=== PATIENT | female | born 1955 | race Caucasian/White ===

== ENCOUNTER → 2019-11-09 08:58 | Outpatient (BNVA) | payer OTHER, SELFPAY | PROVIDERS: Family Provider Nurse Practitioner; PCP Nurse Practitioner; Visit Provider Otolaryngology | DX: K14.6 Glossodynia (principal); J35.01 Chronic tonsillitis; J03.91 Acute recurrent tonsillitis, unspecified; J34.2 Deviated nasal septum; J34.3 Hypertrophy of nasal turbinates | CPT/HCPCS: 99203; 99214 ==

== ENCOUNTER 2019-11-09 10:47 | Outpatient (REF) | payer OTHER, SELFPAY ==
[2019-11-09 11:39] LABS: Basophils # 0.1 10^3/uL (0.0-0.1); Eosinophils # 0.1 10^3/uL (0.0-0.8); Hemoglobin 13.5 g/dL (11.5-15.3); Lymphocytes # 1.7 10^3/uL (0.8-4.8); Lymphocytes % 33.5 %; Mean Corpuscular HGB Conc 32.9 g/dL (30.0-36.0); Mean Corpuscular Hemoglobin 29.2 pg (28.0-34.0); Mean Corpuscular Volume 88.6 fL (81-99); Mean Platelet Volume 9.3 fL (7.4-10.4); Monocytes # 0.5 10^3/uL (0.2-0.9); Monocytes % 9.7 %; Neutrophils # 2.8 10^3/uL (1.8-7.7); Neutrophils % 54.6 %; Nucleated Red Blood Cells % 0 %; Platelet Count 280 10^3/cmm (130-400); Red Blood Count 4.63 10^6/uL (4.1-5.3); Red Cell Distribution Width 12.9 % (12.1-15.1); White Blood Count 5.1 10^3/uL (4.0-10.0)
[2019-11-09 11:50] LABS: Alanine Aminotransferase 29 U/L (0-33); Albumin Level 4.4 g/dL (3.5-5.2); Alkaline Phosphatase 98 IU/L (35-105); Anion Gap 16.5 (5-19); Aspartate Amino Transferase 25 U/L (0-32); Blood Urea Nitrogen 12 mg/dL (8-23); Calcium 10.5 mg/Dl (8.8-10.2); Carbon Dioxide 28 mmol/L (22-29); Chloride 101 mmol/L (98-107); Globulin 3.5 g/dL (1.3-4.6); Glomerular Filtration Rate 124.2 mL/min (90-130); Glucose 107 mg/dL (74-106); Potassium 4.5 mmol/L (3.5-5.1); Sodium 141 mmol/L (136-145); Total Bilirubin 0.3 mg/dL (0.15-1.2); Total Protein 7.9 g/dL (6.6-8.7)
[2019-11-09 12:05] LABS: Vitamin B12 1102 pg/mL (232-1245)
[2019-11-11 18:41] LABS: Zinc Level, Serum or Plasma 79 mcg/dL (60-130)
== END 2019-11-09 10:48 | disposition home or self-care (01) ==
LOC: LAB 10:47
PROVIDERS: Family Provider Nurse Practitioner; PCP Nurse Practitioner; Visit Provider Dermatology
DX: Z01.89 Encounter for other specified special examinations (principal); Z79.899 Other long term (current) drug therapy
CPT/HCPCS: 36415; 80053; 82607; 84630; 85025

== ENCOUNTER 2019-12-16 10:58 | Outpatient (CLI) | payer OTHER, SELFPAY ==
--- NOTE | 2019-12-16 11:05 | MM_ITS ---
WS: [id number] BILATERAL DIGITAL SCREENING MAMMOGRAM WITH CAD CLINICAL INFORMATION: SCREENING HISTORY: Screening mammogram. No current complaints. COMPARISON: July 30, 2018 TECHNIQUE: Bilateral CC and MLO views. FINDINGS: Fatty-replaced breasts bilaterally. Lucent centered calcification left breast. No suspicious focal ma ss, asymmetry, calcifications, or architectural distortion. No evidence of malignancy. MM/[id number] IMPRESSION: BI-RADS: 2-Benign FOLLOW UP: 1 Year Follow-up Recommend return to annual screening mammography.
== END 2019-12-16 10:59 | disposition home or self-care (01) ==
LOC: RADSHAW 11:00
PROVIDERS: Family Provider Nurse Practitioner; PCP Nurse Practitioner; Visit Provider Nurse Practitioner
DX: Z12.31 Encounter for screening mammogram for malignant neoplasm of breast (principal)
CPT/HCPCS: 77067

== ENCOUNTER 2021-03-10 09:50 | Emergency (ER) | payer OTHER, MEDICARE, SELFPAY ==
[2021-03-10 09:57] VITALS: BP 131/69; PULSE 116; RESP 20; TEMP 37.1; O2SAT 95; BMI 36.6
--- NOTE | 2021-03-10 10:02 | ED_ITS ---
HPI - URI/Sore Throat General: Chief Complaint: Dental/Oral Stated Complaint: throat pain Time Seen by Provider: 03/10/21 10:02 History of Present Illness: HPI Narrative: Patient comes in for persistent tenderness and soreness to her posterior pharynx. Patient was started on antibiotics and steroids on Friday for a tonsillitis. Patient does have a history of chronic tonsillar hypertrophy. Patient also takes medications routinely for cholesterol. Patient denies diabetes. MD elicited complaint: sore throat Onset (ago): day(s) (Patient reports sore throat and illness since the ) Consistency: constant Severity: moderate Description of mucous: clear Exacerbating factors: swallowing Relieving factors: nothing Associated symptoms: Reports nausea and sore throat Treatments prior to arrival: none Review of Systems General: Reports: 10 or more systems reviewed and unremarkable except in HPI and below ENMT: Reports: throat pain GI: Reports: nausea PFSH ED PFSH: Medical History (Updated 03/10/21 @ 14:37 by Danilo Rodas MD) Anxiety and depression Chronic tonsillitis Total body pain Surgical History (Updated 03/10/21 @ 14:37 by Danilo Rodas MD) Bone cyst of femur Right --excised History of carpal tunnel release Bilateral Family History Other Cancer Dementia Hiatal hernia Hypertension Social History Smoking and tobacco status: never smoked Alcohol intake: former Physical Exam Const: COMMON NORMALS: no acute distress and patient oriented x3 GENERAL APPEARANCE: cooperative HENMT: COMMON NORMALS: normocephalic, TM's normal bilaterally and Normal exte rnal nose present HEAD & SCALP: normal to inspection and normocephalic NOSE: Normal external nose present TYMPANIC MEMBRANE: TM's normal bilaterally MOUTH: Normal oral and palatal mucosa present THROAT: other (Tonsillar hypertrophy +3.) Eye: GENERAL EYE: appearance normal, both eyes and all related structures Neck/C-Spine: COMMON NORMALS: full ROM Lymph: LYMPHATIC: no lymphadenopathy noted Chest: COMMONS NORMALS: normal inspection of the chest Resp: COMMON NORMALS: normal respiratory effort EFFORT & INSPECTION: Yes able to speak in complete sentences Cardio: COMMON NORMALS: regular rate and regular rhythm RATE: regular rate RHYTHM: regular rhythm GI: COMMON NORMALS: non-tender : COMMON NORMALS: Yes no CVA tenderness BLADDER/KIDNEY EXAM: Yes no CVA tenderness Back/Pelvis: COMMON NORMALS: no CVA tenderness and thoracic and lumbar spine normal to inspection Extremity: COMMON NORMALS: normal to inspection Neuro: COMMON NORMALS: patient oriented x3 and moves all extremities Psych: COMMON NORMALS: mental status grossly normal and cooperative Skin: COMMON NORMALS: no rashes or lesions noted GENERAL SKIN EXAM: no rashes or lesions noted Course ED course: 1225, patient is resting well. I reviewed patient's labs with her and discussed her elevated liver enzymes. Patient has been off her statins for 3 weeks due to some dyspepsia. Patient has no other chronic medical problems. Palpation of the abdomen notes the right upper quadrant, positive Washington sign. Patient reports the pain goes through to her back. I ordered a gallbladder ultrasound due to the abnormalities. 9415, paged Dr. Rodas, general surgeon, to discuss abnormal ultrasound of the gallbladder. He agreed to come and evaluate patient. 1435, Dr. Rodas has talked with patient does not feel that it is an emergent gallbladder at this time. I reviewed this with patient's at this time she would like to go home and get cleaned out with a good bowel movement. We will stop the steroid and the azithromycin and change patient to clindamycin to get better oral coverage due to her tonsillitis. Patient then will follow up with primary care for repeat labs and further evaluation. Vital Signs: Vital signs: Vital Signs Temperature 98.7 F 03/10/21 09:57 Pulse Rate 103 H 03/10/21 14:04 Respiratory Rate 18 03/10/21 14:04 Blood Pressure 113/80 03/10/21 14:04 Pulse Oximetry 95 03/10/21 12:39 MDM - URI/Sore Throat MDM Narrative: Medical decision making narrative: Patient comes in today for complaints of sore throat. Patient was started on antibiotics and steroids on Friday with minimal relief. Patient reports difficulty of swallowing and pain with talking. Patient manages secretions well. Patient is easily understood with voice. Posterior pharynx shows tonsillar hypertrophy +3. Airway is intact. Differential diagnosis includes tonsillar abscess, re tropharyngeal abscess, tonsillitis. CBC showed a white count of 8.5. Metabolic panel noted some abnormalities with liver enzymes. Bilirubin was normal. CT scan of the soft tissues of neck indicated no tonsillar abscess or drainable abscess. Noticing the liver enzymes a discussed with patient she did report some right upper quadrant pain for the last 2 weeks along with pain radiating to her back. Patient continues to be uncomfortable with mainly complaints of back pain at this time. Reexamination of patient's abdomen noted a positive Washington sign. Ultrasound of the abdomen and gallbladder noted some mild gallbladder wall thickening. Dr. Rodas was consulted for further evaluation. No emergent gallbladder was indicated at this time. Patient will be continued with clindamycin antibiotic and will stop the azithromycin and steroid. I encouraged plenty of fluids and light diet. Patient was given magnesium citrate for possible constipation. Patient can use hydrocodone as needed for pain. Patient can return to the ER as needed for worsening signs and symptoms. Lab Data: Labs: Lab Results 03/10/21 03/10/21 Range/Units 10:20 10:20 WBC 8.5 (4.0-10.0) 10^3/ uL RBC 4.03 L (4.1-5.3) 10^6/u L Hgb 11.9 (11.5-15.3) g/dL Hct 35.3 L (37.0-47.0) % MCV 87.6 (81-99) fL MCH 29.5 (28.0-34.0) pg MCHC 33.7 (30.0-36.0) g/dL RDW 14.6 (12.1-15.1) % Plt Count 100 L (130-400) 10^3/c mm MPV 11.7 H (7.4-10.4) fL Neut % (Auto) 86.0 % Lymph % (Auto) 8.1 % Lake % (Auto) 4.5 % Eos % (Auto) 0.2 % Baso % (Auto) 0.5 % Neut # (Auto) 7.29 (1.8-7.7) 10^3/u L Lymph # (Auto) 0.7 L (0.8-4.8) 10^3/u L Lake # (Auto) 0.4 (0.2-0.9) 10^3/u L Eos # (Auto) 0.0 (0.0-0.8) 10^3/u L Baso # (Auto) 0.0 (0.0-0.1) 10^3/u L Nucleated RBC % (a uto) 0 % Nucleated RBCs # 0.0 /100WBC Sodium 138 (136-145) mmol/L Potassium 3.4 L (3.5-5.1) mmol/L Chloride 102 (98-107) mmol/L Carbon Dioxide 26 (22-29) mmol/L Anion Gap 13.4 (5-19) BUN 10 (8-23) mg/dL Creatinine 0.5 (0.5-0.9) mg/dL GFR Calculation 123.4 (90-130) mL/min Glucose 96 (65-115) mg/dL Calculated Osmolal ity 285 (285-295) mOsm/k g Calcium 8.4 L (8.5-10.5) mg/dL Total Bilirubin 0.7 (0.15-1.2) mg/dL AST 162 H (0-32) U/L ALT 227 H (0-33) U/L Alkaline Phosphata se 549 H (35-105) IU/L Total Protein 6.1 L (6.6-8.7) g/dL Albumin 3.3 L (3.5-5.2) g/dL Globulin 2.8 (1.3-4.6) g/dL Discharge Plan Discharge Patient Disposition: Home Clinical Impression: Acute bacterial tonsillitis, Disease of gallbladder, Constipation Condition: Stable Prescriptions: New clindamycin HCl 150 mg capsule 450 mg PO Q8H 7 Days Qty: 63 RF: 0 hydrocodone-acetaminophen 5-325 mg tablet 1 tab PO Q6H PRN (Reason: pain) Qty: 10 RF: 0 magnesium citrate Solution 296 ml PO DAILY PRN (Reason: constipation) Qty: 296 RF: 1 Discontinued azithromycin 500 mg tablet 500 mg PO DAILY RF: 0 No Action omeprazole 20 mg capsule,delayed release(DR/EC) 20 mg PO DAILY RF: 0 potassium chloride 20 mEq tablet,ER particles/crystals 10 meq PO DAILY RF: 0 cholecalciferol (vitamin D3) 1,000 unit capsule 1,000 unit PO DAILY RF: 0 calcium carbonate [Antacid Ultra Strength] 400 mg calcium (1,000 mg) tablet,chewable 400 mg PO QDAY RF: 0 ergocalciferol (vitamin D2) 400 unit tablet 400 unit PO QDAY RF: 0 Digest Probiotic (S.boulardii) 250 mg capsule 250 mg PO BID RF: 0 simvastatin 80 mg tablet 40 mg PO DAILY RF: 0 sertraline 100 mg tablet 100 mg PO DAILY RF: 0 All Day Allergy (cetirizine) 10 mg capsule 10 mg PO DAILY RF: 0 melatonin 10 mg capsule 10 mg PO BEDTIME RF: 0 cinnamon bark [Cinnamon] 500 mg capsule 500 mg PO DAILY RF: 0 multivitamin [Daily Multi-Vitamin] Tablet 1 tab PO DAILY RF: 0 Fish Oil 1 tab PO DAILY RF: 0 Discharge Orders: Discharge ED (Routine); Ordered 03/10/21 Ordered By: Be Herron Referrals: Pricilla Staley FNP [Primary Care Provider] - Discharge Diet: Advance as tolerated Discharge Activity: Increase activity as tolerated Patient Instructions: Biliary Colic (ED), Opioid Safety Activity Restrictions/Additional Instructions: Drink plenty of fluids. Stop azithromycin and Medrol Dosepak. Start clindamycin, new antibiotic, and take as directed. Use magnesium citrate one 10 ounce bottle now and repeat in 12 hours if no bowel movement. Follow-up with primary care in 3 days for recheck. Return to the emergency department for high fever or new concerns. Coding Level of Care Code ED Counselor Dormitory for [facility]wjason Exam Comprehensive
--- NOTE | 2021-03-10 10:08 | CTR_ITS ---
PROCEDURE INFORMATION: Exam: CT Neck With Contrast Exam date and time: 03/10/2021 10:10 AM Age: 66 years old Clinical indication: Throat pain; Additional info: Tonsilar vs peritonsilar abscess TECHNIQUE: Imaging protocol: Computed tomography images of the neck with contrast. Radiation optimization: All CT scans at this facility use at least one of these dose optimization techniques: automated exposure control; mA and/or kV adjustment per patient size (includes targeted exams where dose is matched to clinical indication); or iterative reconstruction. Contrast material: OMNI 300; Contrast volume: 95 ml; Contrast route: INTRAVENOUS (IV); COMPARISON: No relevant prior studies available. RADIATION DOSE METRICS: Total DLP (mGy-cm): 458.47 FINDINGS: Nasopharynx: Unremarkable. Dental: Examination is limited secondary to metallic artifact from dental fillings and/or dental hardware. Oropharynx: Mild enlargement of the tonsils bilaterally suggesting mild bilateral tonsillitis. Possible tiny microabscesses in the right tonsil with no drainable abscess identified. Parapharyngeal fat planes appear intact. Hypopharynx: Unremarkable. Larynx: Unremarkable. Normal epiglottis. Retropharyngeal space: Unremarkable. Submandibular/Parotid glands: Normal. Glands are normal in size. Thyroid: Normal. No enlarged or calcified nodules. Lymph nodes: Unremarkable. No lymphadenopathy. Trachea: Visualized trachea is unremarkable. Lungs: Unremarkable as visualized. Bones/joints: Moderate to severe multilevel spine degenerative changes including degenerative disc disease, spondylosis and facet degenerative changes. Soft tissues: Unremarkable. No significant soft tissue swelling. CT/CT neck w con* [id number] IMPRESSION: 1. Mild enlargement of the tonsils bilaterally suggesting mild bilateral tonsillitis. 2. Possible tiny microabscesses in the right tonsil with no drainable abscess identified. 3. Parapharyngeal fat planes appear intact. Radiation Dose CTDIVOL = (mGy): DLP = 458.47 (mGy-cm)
[2021-03-10] MEDS: ketorolac 30 mg/mL INJ 15 MG IVP (10:22)
[2021-03-10] MEDS: dexamethasone 10 mg/mL INJ IVP (10:23)
[2021-03-10] MEDS: clindamycin 600 MG/50 ML PREMIX 100 MG IV (10:35)
[2021-03-10 10:36] VITALS: RESP 18
[2021-03-10] MEDS: morphine 4 mg/mL SDV 1 mL 2 MG IVP (10:36)
[2021-03-10 10:38] LABS: Basophils % 0.5 %; Eosinophils % 0.2 %; Hematocrit 35.3 % (37.0-47.0); Hemoglobin 11.9 g/dL (11.5-15.3); Lymphocytes # 0.7 10^3/uL (0.8-4.8); Lymphocytes % 8.1 %; Mean Corpuscular HGB Conc 33.7 g/dL (30.0-36.0); Mean Corpuscular Hemoglobin 29.5 pg (28.0-34.0); Mean Corpuscular Volume 87.6 fL (81-99); Mean Platelet Volume 11.7 fL (7.4-10.4); Monocytes # 0.4 10^3/uL (0.2-0.9); Monocytes % 4.5 %; Neutrophils # 7.29 10^3/uL (1.8-7.7); Nucleated Red Blood Cells % 0 %; Platelet Count 100 10^3/cmm (130-400); Red Blood Count 4.03 10^6/uL (4.1-5.3); Red Cell Distribution Width 14.6 % (12.1-15.1); White Blood Count 8.5 10^3/uL (4.0-10.0)
[2021-03-10 10:58] LABS: Alanine Aminotransferase 227 U/L (0-33); Albumin Level 3.3 g/dL (3.5-5.2); Alkaline Phosphatase 549 IU/L (35-105); Aspartate Amino Transferase 162 U/L (0-32); Blood Urea Nitrogen 10 mg/dL (8-23); Calcium 8.4 mg/dL (8.5-10.5); Carbon Dioxide 26 mmol/L (22-29); Chloride 102 mmol/L (98-107); Globulin 2.8 g/dL (1.3-4.6); Glomerular Filtration Rate 123.4 mL/min (90-130); Glucose 96 mg/dL (65-115); Osmolality Calculated 285 mOsm/kg (285-295); Sodium 138 mmol/L (136-145); Total Bilirubin 0.7 mg/dL (0.15-1.2); Total Protein 6.1 g/dL (6.6-8.7)
[2021-03-10 11:07] VITALS: BP 117/66; PULSE 108; RESP 20
--- NOTE | 2021-03-10 11:08 | PC.NURSE ---
patient stated felt better, tolerated pain well at this time
[2021-03-10 11:12] LABS: Anion Gap 13.4 (5-19)
[2021-03-10 11:13] LABS: Potassium 3.4 mmol/L (3.5-5.1)
[2021-03-10] MEDS: iohexol 300 mg/mL 100 mL Btl IV (11:21)
[2021-03-10 11:35] LABS: Slide Review Slide Review Perform
--- NOTE | 2021-03-10 12:27 | USR_ITS ---
PROCEDURE INFORMATION: Exam: US Abdomen, Limited; Right Upper Quadrant Exam date and time: 03/10/2021 12:28 PM Age: 66 years old Clinical indication: Abdominal pain; Acute; Patient HX: PT has had this pain for 2 weeks but is terrible today; Additional info: Elevated liver enzymes, postive washington's sign, R/O cholecyst TECHNIQUE: Imaging protocol: US abdomen. Real time ultrasound with image documentation. Limited exam focused on the right upper quadrant. COMPARISON: No relevant prior studies available. FINDINGS: Liver: Fatty infiltration of the liver with focal fatty sparing. 18.0 cm liver. Gallbladder: Two 6 mm polyps adherent to the gallbladder wall. Sonographically positive Washington's sign suggesting possible cholecystitis. Common bile duct: 6.5 mm common bile duct which is upper limits of normal for the patient's age. Pancreas: Visualized pancreas is unremarkable. Right kidney: 10.2 x 5.0 x 4.8 cm right kidney. Inferior vena cava: 2.1 cm IVC. US/US abdomen limited [id number] IMPRESSION: 1. Fatty infiltration of the liver with focal fatty sparing. 2. 6.5 mm common bile duct which is upper limits of normal for the patient's age. 3. Two 6 mm polyps adherent to the gallbladder wall. 3.3 mm gallbladder wall consistent with mild gallbladder wall thickening. 4. Sonographically positive Washington's sign suggesting possible cholecystitis.
[2021-03-10] MEDS: sodium chloride 0.9% 1,000 ML 999 ML IV (12:36)
[2021-03-10 12:39] VITALS: BP 102/52; PULSE 105; RESP 20; O2SAT 95
[2021-03-10 14:04] VITALS: BP 113/80; PULSE 103; RESP 18
--- NOTE | 2021-03-10 14:33 | P.CONIM_ITS ---
Providers/Reason For Consult Consulting Physican/Specialty*: General Surgery Danilo Rodas MD Reason for Consult*: Abdominal pain with elevated liver function studies. Primary Care Provider: [facility] History of Present Illness History of Present Illness Joanne Davila is a 66 year old female who presented to the emergency department today with a 2-week history of a sore throat and recurrent tonsillitis. She also mentions that her whole body has been hurting. She said 2 weeks ago she started getting a sore throat. She has a history of chronic recurrent tonsillitis and said that she was having body aches and temperatures up to 103 degrees. She was seen in a clinic in [place] this past Friday and was started on what sounds to be a fluoroquinolone and for some reason, a steroid taper. She continued to have body aches and says her lower back was hurting. She denies nausea, but admits that she has not been eating well because her mouth is so dry. She came to the emergency room for her throat pain and apparently on examination they found that she had some abdominal pain as well. Her laboratory studies returned with mildly elevated transaminases and elevated alkaline phosphatase. Her bilirubin and white blood cell count were normal. An ultrasound was then done which showed some equivocal gallbladder abnormalities. I was asked to evaluate her from a possible cholecystitis standpoint. The patient says that she has not noticed any food intolerances. She says she can eat whatever she wants to (with the possible exception of spicy food, which has been going on forever) but she has not been terribly hungry over the past couple of weeks and she says her tongue gets so dry that she has a hard time eating and things do not taste good, either. In short, I cannot elicit a convincing ongoing history of biliary colic. She does mention that she has not had a bowel movement for about 4 days, which is unusual for her. She does continue to pass flatus. Of note, the patient has been on statins for several years for hyperlipidemia. She says she stopped taking these when she started feeling poorly ( I always quit taking all medication when I start feeling bad. ) She does continue to take ibuprofen and acetaminophen regularly, but I cannot get her to say that she has been taking more than normally directed. Review of Systems Const: Reports: fever(s) ENMT: Reports: throat pain, enlarged tonsils and dry mouth GI: Reports: abdominal pain and constipation; Denies: vomiting Musc: Reports: other ( Whole body pain ) Psych: Reports: anxiety and depression Meds/Allergies Home Medications and Allergies Home Medications Medication Instructions Recorded Confirmed Last Taken Type Saccharomyces boulardii 250 mg 250 mg PO BID 11/09/19 03/10/21 Unknown History capsule calcium carbonate 400 mg calcium 400 mg PO QDAY 11/09/19 03/10/21 Unknown His tory (1,000 mg) chewable tablet cetirizine 10 mg capsule 10 mg PO DAILY 11/09/19 03/10/21 Unknown History cholecalciferol (vitamin D3) 25 1,000 unit PO DAILY 11/09/19 03/10/21 Unknown History mcg (1,000 unit) capsule cinnamon bark 500 mg capsule 500 mg PO DAILY 11/09/19 03/10/21 Unknown History ergocalciferol (vitamin D2) 10 mcg 400 unit PO QDAY 11/09/19 03/10/21 Unknown History (400 unit) tablet melatonin 10 mg capsule 10 mg PO BEDTIME cap 11/09/19 03/10/21 Unknown History multivitamin 1 tab PO DAILY 11/09/19 03/10/21 Unknown History omeprazole 20 mg capsule,delayed 20 mg PO DAILY 11/09/19 03/10/21 Unknown History release potassium chloride 20 mEq 10 meq PO DAILY tab 11/09/19 03/10/21 Unknown History tablet,extended release(part/cryst) sertraline 100 mg tablet 100 mg PO DAILY 11/09/19 03/10/21 Unknown History simvastatin 80 mg tablet 40 mg PO DAILY tab 11/09/19 03/10/21 Unknown History Fish Oil 1 tab PO DAILY 03/10/21 03/10/21 Unknown History clindamycin HCl 450 mg PO Q8H 7 Days #63 cap 03/10/21 Unknown Rx hydrocodone-acetaminophen 1 tab PO Q6H PRN #10 tab 03/10/21 Unknown Rx magnesium citrate 296 ml PO DAILY PRN #296 ml 03/10/21 Unknown Rx Allergies Allergy/AdvReac Type Severity Reaction Status Date / Time No Known Allergies Allergy Verified 11/09/19 09:37 PFSH Acute PFSH: Medical History (Updated 03/10/21 @ 14:37 by Danilo Rodas MD) Anxiety and depression Chronic tonsillitis Total body pain Surgical History (Updated 03/10/21 @ 14:37 by Danilo Rodas MD) Bone cyst of femur Right --excised History of carpal tunnel release Bilateral Family History Other Cancer Dementia Hiatal hernia Hypertension Social History Smoking and tobacco status: never smoked Alcohol intake: former Vitals/I&O/Wt Last Vital Signs Temp 98.7 F 03/10/21 09:57 Pulse 103 H 03/10/21 14:04 Resp 18 03/10/21 14:04 BP 113/80 03/10/21 14:04 Pulse Ox 95 03/10/21 12:39 03/09/21 03/10/21 03/10/21 22:59 06:59 14:59 Intake Total 50 / 50 Balance 50 / 50 Weight last 48 hrs Weight 194 lb Physical Exam Narrative: EXAM NARRATIVE: The patient was encountered in her room in the emergency department. She does not appear to be in any distress. Her affect seems to be a little strange and she sometimes has a hard time directly answering questions. The pupils are equal. No carotid bruits are heard. The lungs are clear save some very mild inspiratory wheezes at times. The abdomen is moderatelyto severely obese but bowel sounds are good. She has tenderness everywhere I push on her abdomen but she does seem to be more tender in the epigastrium and the right upper quadrant. Washington's sign is positive but she has the same reaction when I push in the left mid abdomen and tell her to take a deep breath. I cannot say that she has any obvious peritoneal signs, but everywhere I seem to touch her she is uncomfortable. When I push firmly with my stethoscope I do not seem to get the same reaction. The extremities do not reveal any edema. Neurologically the patient can move all limbs to command. Data Micro: Micro: Microbiology 03/10/21 10:20 Blood Culture - Pr eliminary Blood [facility] 03/10/21 10:35 Blood Culture - Pr eliminary Blood [facility] Laboratory Tests 03/10/21 10:20 Total Bilirubin 0.7 AST 162 H ALT 227 H Alkaline Phosphata se 549 H Albumin 3.3 L Imaging^: US: Radiologist's impression: Ultrasound 03/10/2021 IMPRESSION: 1. Fatty infiltration of the liver with focal fatty sparing. 2. 6.5 mm common bile duct which is upper limits of normal for the patient's age. 3. Two 6 mm polyps adherent to the gallbladder wall. 3.3 mm gallbladder wall consistent with mild gallbladder wall thickening. 4. Sonographically positive Washington's sign suggesting possible cholecystitis. A&P Assessment and plan (1) Abdominal discomfort in right upper quadrant: The patient does seem to have tenderness in the right upper quadrant, but also seems to have tenderness almost everywhere else. Her ultrasound does not reveal any obvious cholelithiasis; her gallbladder wall is borderline thickened, but there is no obvious edema/pericholecystic fluid, etc. Her albumin is slightly low, as well, which can contribute to so-called benign gallbladder wall thickening. The patient's white blood cell count is normal with essentially a normal differential. Her LFTs are elevated but is difficult to know if these are coming down after being on statins versus some type of early cholecystitis issue. She has recent but ongoing constipation and it is difficult to know how much of this is contributing to any abdominal symptoms that she is having, etc. The patient's history is bizarre in the sense that she initially came in for throat pain and was then found to have abdominal discomfort (but again, she seems to have tenderness everywhere). I discussed gallbladder disease and gallbladder surgery. Risks of surgery including bleeding, infection, internal organ injury, chances of a larger/open procedure, failure to improve any of her symptoms, etc. were all gone over. The patient does not want surgery unless it becomes absolutely necessary. I told her that it may be worthwhile considering taking laxatives and getting cleaned out before we will reassess her abdominal symptoms. If she feels much better then obviously we probably would not be pursuing surgery. If it does not make any difference for her, then we will have to decide if we still want to watch this in hopes that it will continue to improve after stopping statins, or proceed with a cholecystectomy in hopes that is going to make her feel better. She seems to agree with a conservative approach. Status: Acute (2) Elevated LFTs: As above. Status: Acute Consult Attestations Medical Necessity Statement: I am going to leave the patient to disposition in the hands of the emergency room physicians. If she needs to be admitted then hopefully the hospitalists would be willing to keep an eye on her. I will be happy to be involved at least peripherally if needed. Coding Level of Care Code Acute Forging Press Lever Tender for Chg Fwd Diagnoses Abdominal discomfort in right upper quadrant R10.11 Elevated LFTs R79.89
[2021-03-10] MEDS: HYDROcodone-acetaminophen 5-325 mg Tablet 1 TAB PO (14:41)
[2021-03-10 14:59] VITALS: BP 107/57; PULSE 102; RESP 16; O2SAT 95
== END 2021-03-10 15:27 | disposition home or self-care (01) ==
PROVIDERS: Emergency Provider Nurse Practitioner Family; PCP Nurse Practitioner
DX: J03.80 Acute tonsillitis due to other specified organisms (principal); K59.00 Constipation, unspecified; K82.9 Disease of gallbladder, unspecified
CPT/HCPCS: 70491; 76705; 80053; 85025; 87040; 96365; 96375; 99284; J1100; J1885; J2270; J3490; J7030; Q9967

== ENCOUNTER 2021-04-17 08:45 | Outpatient (CLI) | payer OTHER, MEDICARE, SELFPAY ==
--- NOTE | 2021-04-17 08:51 | MM_ITS ---
WS: [id number] BILATERAL SCREENING DIGITAL MAMMOGRAM WITH CAD HISTORY: SCREENING COMPARISON: 12/16/2019 and 07/30/2018 Bilateral CC and MLO views submitted. Computer aided detection analyzed. Breast composition: There are scattered areas of fibroglandular density. No suspicious masses, microc alcifications or architectural distortion. Benign calcification LEFT breast. MM/[id number] IMPRESSION: BI-RADS: 2-Benign FOLLOW UP: 1 Year Follow-up
== END 2021-04-17 08:46 | disposition home or self-care (01) ==
LOC: RADSHAW 08:48
PROVIDERS: PCP Nurse Practitioner; Visit Provider Nurse Practitioner
DX: Z12.31 Encounter for screening mammogram for malignant neoplasm of breast (principal)
CPT/HCPCS: 77067

== ENCOUNTER → 2021-05-09 12:52 | Outpatient (BNVA) | payer OTHER, SELFPAY | PROVIDERS: PCP Nurse Practitioner; Visit Provider Surgery | DX: Z20.822 Contact with and (suspected) exposure to COVID-19 (principal); Z11.52 Encounter for screening for COVID-19 | CPT/HCPCS: 87635 ==

== ENCOUNTER 2021-05-14 06:16 | Day surgery (SDC) | payer OTHER, MEDICARE, SELFPAY ==
[2021-05-11 12:33] VITALS: BMI 32.5
[2021-05-14] VITALS (11 sets, daily range): BP systolic 102–156; BP diastolic 63–86; PULSE 63–95; RESP 17–22; TEMP 36.4–37.1; O2SAT 92–99
[2021-05-14 06:51] LABS: Basophils # 0.1 10^3/uL (0.0-0.1); Basophils % 1.1 %; Eosinophils # 0.1 10^3/uL (0.0-0.8); Eosinophils % 2.5 %; Hematocrit 39.9 % (37.0-47.0); Hemoglobin 13.4 g/dL (11.5-15.3); Lymphocytes # 2.4 10^3/uL (0.8-4.8); Lymphocytes % 42.2 %; Mean Corpuscular HGB Conc 33.6 g/dL (30.0-36.0); Mean Corpuscular Hemoglobin 29.6 pg (28.0-34.0); Mean Corpuscular Volume 88.3 fL (81-99); Mean Platelet Volume 9.5 fL (7.4-10.4); Monocytes # 0.7 10^3/uL (0.2-0.9); Monocytes % 11.4 %; Neutrophils # 2.43 10^3/uL (1.8-7.7); Neutrophils % 42.6 %; Nucleated Red Blood Cells % 0 %; Platelet Count 264 10^3/cmm (130-400); Red Blood Count 4.52 10^6/uL (4.1-5.3); Red Cell Distribution Width 13.5 % (12.1-15.1); White Blood Count 5.7 10^3/uL (4.0-10.0)
[2021-05-14] MEDS: acetaminophen 1,000 MG/100 ML PIGGYBACK 400 MG IV (07:10)
[2021-05-14] MEDS: ampicillin-sulbactam 3 GM in sodium chloride 0.9% (plus) 50 ML IV (07:10)
[2021-05-14] MEDS: sodium chloride 0.9% 1,000 ML 30 ML IV (07:11)
[2021-05-14 07:17] LABS: Alanine Aminotransferase 54 U/L (0-33); Albumin Level 3.4 g/dL (3.5-5.2); Alkaline Phosphatase 59 IU/L (35-105); Anion Gap 18.2 (5-19); Aspartate Amino Transferase 55 U/L (0-32); Blood Urea Nitrogen 10 mg/dL (8-23); Calcium 7.2 mg/dL (8.5-10.5); Carbon Dioxide 17 mmol/L (22-29); Chloride 110 mmol/L (98-107); Globulin 2.2 g/dL (1.3-4.6); Glomerular Filtration Rate 159.7 mL/min (90-130); Glucose 72 mg/dL (65-115); Osmolality Calculated 292 mOsm/kg (285-295); Potassium 3.2 mmol/L (3.5-5.1); Sodium 142 mmol/L (136-145); Total Bilirubin 0.3 mg/dL (0.15-1.2); Total Protein 5.6 g/dL (6.6-8.7)
--- NOTE | 2021-05-14 07:39 | ANES.PREANE2 ---
Pre-Anesthetic Assessment Pre-Anesthetic Assessment: Height/Weight: Height 1.55 m Weight 78.018 kg Temp Pulse Resp BP Pulse Ox 98.8 F 95 18 156/84 97 05/14/21 06:31 05/14/21 06:31 05/14/21 06:31 05/14/21 06:31 05/14/21 06:31 Preop Diagnosis: Gallbladder polyps Proposed Procedure: Operation Date: 05/14/21 08:00 Proposed Procedures p Laparoscopic Cholecystectomy 81271 k80.20(Not Applicable) - Porter Avalos MD Was Beta Mary taken within 24 hours: N/A Was Clonidine taken within 24 hours: N/A Last intake: Intake Last Liquid Date 05/13/21 Last Liquid Time 20:00 Last Solid Date 05/13/21 Last Solid Time 18:00 Social: Social History: No alcohol and No tobacco Exam: Pre-Anes Outpt Exam: alert, oriented x 3, clear to auscultation bilaterally and regular rate & rhythm Airway: Submandibular: WNL Cervical ROM: WNL MP: 2 Dentition: Full Additional comments: Under bite GI: GI: GERD Metabolic: Metabolic: Morbid obesity Neuropsych: Neuropsych: Depression Anesthetic Plan: ASA status: 3 Anesthesia: General Risk of > 500 ml blood loss (7ml/kg in children): No Meds/Allergies Current Medications: Current Medications Generic Name Dose Route Start Last Admin Trade Name Freq PRN Reason Stop Dose Admin Sodium Chloride 1,000 mls @ 30 ml s/hr 05/14/21 06:30 05/14/21 07:11 Sodium Chloride 0.9% IV 05/15/21 06:29 30 mls/hr .Q24H DIANELYS Administration PFSH Anesthesia PFSH: Medical History Anxiety and depression Chronic tonsillitis Total body pain Surgical History Bone cyst of femur Right --excised History of carpal tunnel release Bilateral Family History Other Cancer Dementia Hiatal hernia Hypertension Social History Alcohol intake: former Data Anesthesia CBC & Chem 7: 05/14/21 06:40 05/14/21 06:40 Other Labs: Laboratory Results - last 48 hr 05/14/21 05/14/21 06:40 06:40 WBC 5.7 RBC 4.52 Hgb 13.4 Hct 39.9 MCV 88.3 MCH 29.6 MCHC 33.6 RDW 13.5 Plt Count 264 MPV 9.5 Neut % (Auto) 42.6 Lymph % (Auto) 42.2 [place] % (Auto) 11.4 Eos % (Auto) 2.5 Baso % (Auto) 1.1 Neut # (Auto) 2.43 Lymph # (Auto) 2.4 [place] # (Auto) 0.7 Eos # (Auto) 0.1 Baso # (Auto) 0.1 Nucleated RBC % (auto) 0 Nucleated RBCs # 0.0 Sodium 142 Potassium 3.2 L Chloride 110 H Carbon Dioxide 17 L Anion Gap 18.2 BUN 10 Creatinine 0.4 L GFR Calculation 159.7 H Glucose 72 Calculated Osmolality 292 Calcium 7.2 L Total Bilirubin 0.3 AST 55 H ALT 54 H Alkaline Phosphatase 59 Total Protein 5.6 L Albumin 3.4 L Globulin 2.2 Cardiac Studies: No Data to Display
--- NOTE | 2021-05-14 08:21 | W.PM.OPSFHP ---
Same Day Surgery H&P Indication for Procedure/HPI DATE OF PROCEDURE: May 14, 2021 CHIEF COMPLAINT/INDICATIONFOR SURGICAL PROCEDURE: Gallbladder issues PREOP DIAGNOSIS: Gallbladder polyps PLANNED PROCEDRUE: Operation Date: 05/14/21 08:00 Proposed Procedures p Laparoscopic Cholecystectomy 21652 k80.20(Not Applicable) - Porter Avalos MD This is a pleasant 66 years old female patient presents with history of sharp right upper quadrant abdominal pain referred to the back and she was worked up in the emergency department and was found to have gallbladder polyps. Patient reports that she has been entertaining unhealthy diet. Abdominal ultrasound was done and showed 1. Fatty infiltration of the liver with focal fatty sparing. 2. 6.5 mm common bile duct which is upper limits of normal for the patient's age. 3. Two 6 mm polyps adherent to the gallbladder wall. 3.3 mm gallbladder wall consistent with mild gallbladder wall thickening. 4. Sonographically positive Washington's sign suggesting possible cholecystitis. Blood work showed platelet count of 100,000, elevated liver function tests and normal bilirubin. Patient was also found to have fatty liver Interim history 05/14/2021 Patient comes today and shows trending down and liver function tests and she is scheduled for laparoscopic cholecystectomy. ROS All systems have been reviewed negative except as per the above or per problem list Medications/Allergies* Home Medications Medication Instructions Recorded Confirmed Type Saccharomyces boulardii 250 mg 250 mg PO BID 11/09/19 05/14/21 History capsule calcium carbonate 400 mg calcium 400 mg PO QDAY 11/09/19 05/14/21 History (1,000 mg) chewable tablet cetirizine 10 mg capsule 10 mg PO DAILY 11/09/19 05/14/21 History cholecalciferol (vitamin D3) 25 1,000 unit PO DAILY 11/09/19 05/14/21 History mcg (1,000 unit) capsule cinnamon bark 500 mg capsule 500 mg PO DAILY 11/09/19 05/14/21 History melatonin 10 mg capsule 10 mg PO BEDTIME cap 11/09/19 05/14/21 History multivitamin 1 tab PO DAILY 11/09/19 05/14/21 History omeprazole 20 mg capsule,delayed 20 mg PO DAILY 11/09/19 05/14/21 History release potassium chloride 20 mEq 10 meq PO DAILY tab 11/09/19 05/14/21 History tablet,extended release(part/cryst) sertraline 100 mg tablet 100 mg PO DAILY 11/09/19 05/14/21 History simvastatin 80 mg tablet 40 mg PO DAILY tab 11/09/19 05/14/21 History Fish Oil 1 tab PO DAILY 03/10/21 05/14/21 History Allergies/Adverse Reactions Allergy/AdvReac Type Severity Reaction Status Date / Time No Known Allergies Allergy Verified 05/14/21 08:24 Current Medications: Generic Name Dose Route Start Last Admin Trade Name Ayush PRN Reason Stop Dose Admin Sodium Chloride 1,000 mls @ 30 mls/hr 05/14/21 06:30 05/14/21 07:11 Sodium Chloride 0.9% IV 05/15/21 06:29 30 mls/hr .Q24H DIANELYS Administration Pertinent History/Comorbid Conditions* Medical History (Updated 04/14/21 @ 15:24 by Porter Avalos MD) Anxiety and depression Chronic tonsillitis Total body pain Surgical History (Updated 03/10/21 @ 14:37 by Danilo Rodas MD) Bone cyst of femur Right --excised History of carpal tunnel release Bilateral Family History (Updated 11/09/19 @ 09:50 by aPm Lindsey LPN) Dementia Cancer Hypertension Hiatal hernia Social History Alcohol intake: former Pertinent Exam Findings alert, oriented x 3, clear to auscultation bilaterally, regular rate & rhythm and procedure specific exam findings (Abdominal examination nontender nondistended soft) Recommendations Surgery/Procedure today (Laparoscopic cholecystectomy possible open) Other Plans: Laparoscopic cholecystectomy possible open Coding Level of Care Code Acute Knitter Hel[employer] for Stewart Fabian
[2021-05-14] MEDS: lidocaine 2% INJ 20 mL INJECTION (08:47)
--- NOTE | 2021-05-14 09:16 | PM.OP ---
Operative Report Date of procedure: May 14, 2021 Pre-op Diagnosis: Gallbladder polyps Post-op diagnosis: other (Chronic cholecystitis) Post-op Findings: Chronic cholecystitis Procedure Done: Laparoscopic cholecystectomy Specimens removed/disposition: Gallbladder and contents Surgeon: Porter Avalos Security Attendant: Surgical jose Dougherty Circulating nurse Eva Anesthesia: General (Maria Antonia Marcano) Estimated blood loss (mL): 10 Condition: stable Disposition: same day Brief History: Symptomatic gallbladder disease. Procedure: Patient was identified in the holding area and taken back to the operative suite, placed in supine position intubated by anesthesia . Time-out was done verifying the patient's name/date of /planned procedure and destination after the procedure, all were in agreement. SCDs confirmed to be functioning, preoperative antibiotics administered per protocol, and beta karen protocol was confirmed. Patient was appropriately secured to the table, footboard was applied to the OR table, before prep and drape anesthesia was asked to tilt the table back and forth to make sure that the patient is appropriately secured and she was. Prep and drape of the abdomen was done under the usual sterile technique, followed by that supraumbilical skin incision,skin incision was done by a 11 blade knife, and stay sutures were applied to the fascia and Stratton trocar technique was used to enter the abdominal without injuring any abdominal viscera, started by low flow gas insufflation followed by a high flow, started with a 10 mm laparoscope and under direct vision there was no evidence of any injuries, the scope then switched to a 30? ,10 millimeter scope and under direct visualization 5 millimeter trocar was inserted in the epigastric region followed by two 5 mm trocars were inserted in the right upper quadrant that was done after injection of local lidocaine 2% at all incision sites. Gallbladder showed chronic cholecystitis Patient was then positioned in the head up and tilted to the left Ratcheted forceps were introduced into the lateral most 5mm port and was applied unto the fundus of the gallbladder cephalad and using Bullet forceps the infundibulum of the gallbladder was retracted laterally. Using [place] forceps then L-hook cautery to dissect the peritoneum overlying the Calot's triangle whihc was then opened medially and laterally until the cystic duct and the cystic artery were skeletonized. Dissection was carried along the body of the gallbladder and after ensuring critical view of safety was identfied. Cystic duct and cystic artery where seen connected to the gallbladder. Clips were applied on the cystic duct towards the common bile duct 1 towards the gallbladder then divided is in sharp scissors, 2 clips were then applied onto the cystic artery and 1 towards the gallbladder and divided by sharp scissors. Dissection was then carried along of the gallbladder from the gallbladder fossa using cautery as well as sharp dissection with heat energy. The gallbladder then was dissected out from the gallbladder fossa totally , cholecystectomy was then achieved and was placed in an Endo Catch bag and then retrieved from the Stratton trocar site under direct visualization using a 5 mm 30? scope through the epigastric trocar, specimen was then passed to the circulating nurse to go for permanent pathology,irrigation and hemostasis was done to the gallbladder fossa after hemostasis was secured, final survey laparoscopy was done that showed no injuries. Suction irrigation was obtained The supraumbilical fascial defect was then closed using interrupted number 1 PDS sutures using a fascial closure device ;Gómez Huthcison under direct visualization Gas was allowed to deflate,Trocars were then taken out under direct vision there was no evidence of bleeding Specimen was passed to the circulating nurse for permanent pathology. No drains were placed and the supraumbilical incision as well as all trocar sites were closed by 3/0 VICRYL THEN by 4-0 Monocryl to approximate the skin edges of the supraumbilical incision, dressing was applied in the form of Dermabond and the patient patient got extubated and was taken to recovery area in a stable condition. Count of sponges, needles and instruments were completed at the end of the procedure I was present for the whole entire procedure.
--- NOTE | 2021-05-14 09:45 | SUR.PHASEI ---
pt sleeps if not disturbed abdomen soft with 4 sites D/I, VSS,
[2021-05-14] MEDS: fentaNYL 50 mcg/mL INJ 2mL IVP (10:00)
[2021-05-14] MEDS: ondansetron 2 mg/ML SDV 2 mL 4 MG IVP (10:28)
[2021-05-14] MEDS: HYDROcodone-acetaminophen 5-325 mg Tablet 1 TAB PO (10:59)
--- NOTE | 2021-05-14 16:45 | ANE.PACU2 ---
Inpatient post-anesthesia follow up: Airway intact: Yes Vital signs: Temperature 97.5 F Pulse Rate 77 Respiratory Rate 18 Blood Pressure 131/72 Pulse Oximetry 93 Oxygen Delivery Me thod Nasal Cannula Oxygen Flow Rate 1 Fraction of Inspir ed Oxygen Hydration adequate: Yes Nausea and vomiting: No Pain level: 2 Mental status: Baseline
== END 2021-05-14 11:33 | disposition home or self-care (01) ==
PROVIDERS: PCP Nurse Practitioner; Visit Provider Surgery
PROC: 0FT44ZZ Resection of Gallbladder, Percutaneous Endoscopic Approach (ICD-10-PCS; CPT 47562; principal; 2021-05-14 08:00)
DX: K81.1 Chronic cholecystitis (principal); K21.9 Gastro-esophageal reflux disease without esophagitis; E66.01 Morbid (severe) obesity due to excess calories; Z68.32 Body mass index [BMI] 32.0-32.9, adult; F32.9 Major depressive disorder, single episode, unspecified
CPT/HCPCS: 47562; 36415; 80053; 85025; 88304; 96374; J0295; J2405; J2704; J2710; J3010; J3490; J7030

== ENCOUNTER → 2021-08-16 10:02 | Outpatient (BNVA) | payer OTHER, SELFPAY | PROVIDERS: PCP Nurse Practitioner; Visit Provider Surgery | DX: Z11.52 Encounter for screening for COVID-19 (principal) | CPT/HCPCS: 87635 ==

== ENCOUNTER 2021-08-22 07:17 | Day surgery (SDC) | payer OTHER, SELFPAY ==
[2021-08-17 14:26] VITALS: BMI 33.8
--- NOTE | 2021-08-22 08:02 | W.PM.OPSFHP ---
Same Day Surgery H&P Indication for Procedure/HPI DATE OF PROCEDURE: August 22, 2021 CHIEF COMPLAINT/INDICATIONFOR SURGICAL PROCEDURE: History of colon polyps PREOP DIAGNOSIS: History of colon polyps PLANNED PROCEDRUE: Operation Date: 08/22/21 09:00 Proposed Procedures p Colonoscopy 08315 Z86.010(Not Applicable) - Porter Avalos MD This is a pleasant 66 years old female patient had colonoscopy back in 2006 and was found to have colon polyps. Patient comes today for surveillance colonoscopy. ROS All systems have been reviewed negative except as per the above or per problem list. Medications/Allergies* Home Medications Medication Instructions Recorded Confirmed Type Saccharomyces boulardii 250 mg 250 mg PO BID 11/09/19 08/22/21 History capsule calcium carbonate 400 mg calcium 400 mg PO QDAY 11/09/19 08/22/21 History (1,000 mg) chewable tablet cetirizine 10 mg capsule 10 mg PO DAILY 11/09/19 08/22/21 History cholecalciferol (vitamin D3) 25 1,000 unit PO DAILY 11/09/19 08/22/21 History mcg (1,000 unit) capsule cinnamon bark 500 mg capsule 500 mg PO DAILY 11/09/19 08/22/21 History melatonin 10 mg capsule 10 mg PO BEDTIME cap 11/09/19 08/22/21 History multivitamin 1 tab PO DAILY 11/09/19 08/22/21 History omeprazole 20 mg capsule,delayed 20 mg PO DAILY 11/09/19 08/22/21 History release potassium chloride 20 mEq 10 meq PO DAILY tab 11/09/19 08/22/21 History tablet,extended release(part/cryst) sertraline 100 mg tablet 100 mg PO DAILY 11/09/19 08/22/21 History simvastatin 80 mg tablet 40 mg PO DAILY tab 11/09/19 08/22/21 History Fish Oil 1 tab PO DAILY 03/10/21 08/22/21 History Allergies/Adverse Reactions Allergy/AdvReac Type Severity Reaction Status Date / Time No Known Allergies Allergy Verified 08/22/21 09:07 Pertinent History/Comorbid Conditions* Medical History (Updated 07/03/21 @ 08:15 by Marie Bronson DO) Anxiety and depression Chronic tonsillitis Elevated LFTs Hyperlipidemia Right upper quadrant abdominal pain Total body pain Surgical History (Updated 07/03/21 @ 08:15 by Marie Bronson DO) Bone cyst of femur Right --excised History of carpal tunnel release Bilateral History of colonoscopy with polypectomy 2006 History of dental surgery Family History (Updated 11/09/19 @ 09:50 by Pam Lindsey LPN) Dementia Cancer Hypertension Hiatal hernia Social History Alcohol intake: former Pertinent Exam Findings alert, oriented x 3, clear to auscultation bilaterally, regular rate & rhythm and procedure specific exam findings (Abdominal examination nontender nondistended soft) Recommendations Surgery/Procedure today (Surveillance colonoscopy with possible biopsy) Other Plans: Plan of care; After thorough history and physical examination and reviewing the chart, plan to perform surveillance colonoscopy. I discussed with the patient in details the risks,benefits,alternatives and indications.The risk of aspiration, bleeding, soft tissue injury, perforation of the colon and other potential concomitant complications were explained to the patient in details,also the potential need for Laproscoy/Laparotomy to repair any related complications including but not limited to colectomy and or Closotomy.The patient understood this well and did agree to proceed. Rationale was carefully and clearly discussed with the patient.Appropriate informed consent have been reviewed and signed All questions have been answered and all concerns have been addressed to patient's satisfaction. Verbal and written Instructions were given to the patient for colonoscopy prep Coding Level of Care Code [facility] for [facility]ian
[2021-08-22 08:10] VITALS: BP 154/100; PULSE 90; RESP 18; TEMP 36.5; O2SAT 97
[2021-08-22] MEDS: sodium chloride 0.9% 1,000 ML 30 ML IV (08:31)
--- NOTE | 2021-08-22 09:00 | ANES.PREANE2 ---
Pre-Anesthetic Assessment Pre-Anesthetic Assessment: Height/Weight: Height 1.55 m Weight 81.193 kg Temp Pulse Resp BP Pulse Ox 97.7 F 90 18 154/100 97 08/22/21 08:10 08/22/21 08:10 08/22/21 08:10 08/22/21 08:10 08/22/21 08:10 Preop Diagnosis: History of colon polyp Proposed Procedure: Operation Date: 08/22/21 09:00 Proposed Procedures p Colonoscopy 44599 Z86.010(Not Applicable) - Porter Avalos MD Was Beta Mary taken within 24 hours: N/A Was Clonidine taken within 24 hours: N/A Last intake: Intake Last Liquid Date 08/21/21 Last Liquid Time 23:30 Last Solid Date 08/20/21 Last Solid Time 17:00 Social: Social History: No alcohol and No tobacco Exam: Pre-Anes Outpt Exam: alert and oriented x 3 Airway: Submandibular: WNL Cervical ROM: WNL MP: 2 Dentition: Full History/ROS: No significant history except as noted Pulmonary: Pulmonary: Sleep apnea and SOB CV/HEM: CV/HEM: None reported : : None reported Hepatic: Hepatic: None reported GI: GI: GERD Metabolic: Metabolic: Hyperlipidemia Musc/skel: Musc/skel: Lower Back Pain Neuropsych: Neuropsych: Anxiety and Depression Anesthetic Plan: ASA status: 3 Anesthesia: Anesthesia Evaluation and MAC Risk of > 500 ml blood loss (7ml/kg in children): No Meds/Allergies Current Medications: Current Medications Generic Name Dose Route Start Last Admin Trade Name Freq PRN Reason Stop Dose Admin Sodium Chloride 1,000 mls @ 30 ml s/hr 08/22/21 07:45 08/22/21 08:31 Sodium Chloride 0.9% IV 08/23/21 07:44 30 mls/hr .Q24H DIANELYS Administration PFSH Anesthesia PFSH: Medical History Anxiety and depression Chronic tonsillitis Elevated LFTs Hyperlipidemia Right upper quadrant abdominal pain Total body pain Surgical History Bone cyst of femur Right --excised History of carpal tunnel release Bilateral History of colonoscopy with polypectomy 2006 History of dental surgery Family History Other Cancer Dementia Hiatal hernia Hypertension Social History Alcohol intake: former Data Anesthesia Cardiac Studies: No Data to Display
[2021-08-22 09:26] VITALS: BP 107/54; PULSE 80; RESP 16; TEMP 36.6; O2SAT 93
[2021-08-22 09:36] VITALS: BP 119/68; PULSE 83; RESP 18; O2SAT 93
--- NOTE | 2021-08-22 14:30 | ANE.PACU2 ---
Inpatient post-anesthesia follow up: Airway intact: Yes Vital signs: Temperature 97.9 F Pulse Rate 83 Respiratory Rate 18 Blood Pressure 119/68 Pulse Oximetry 93 Oxygen Delivery Me thod Room Air Oxygen Flow Rate Fraction of Inspir ed Oxygen Hydration adequate: Yes Nausea and vomiting: No Pain level: 2 Mental status: Baseline
== END 2021-08-22 09:56 | disposition home or self-care (01) ==
PROVIDERS: PCP Nurse Practitioner; Visit Provider Surgery
PROC: 0DJD8ZZ Inspection of Lower Intestinal Tract, Via Natural or Artificial Opening Endoscopic (ICD-10-PCS; CPT 45378; principal; 2021-08-22 09:00)
DX: Z12.11 Encounter for screening for malignant neoplasm of colon (principal); D17.5 Benign lipomatous neoplasm of intra-abdominal organs; K57.30 Diverticulosis of large intestine without perforation or abscess without bleeding; E78.5 Hyperlipidemia, unspecified; Z86.010 Personal history of colon polyps; Z87.19 Personal history of other diseases of the digestive system
CPT/HCPCS: 45378; 96360; J2704; J7030

== ENCOUNTER → 2022-04-08 10:49 | Outpatient (BNVA) | payer OTHER, SELFPAY | PROVIDERS: PCP Nurse Practitioner; Referring Provider Nurse Practitioner; Visit Provider Surgery | DX: K43.2 Incisional hernia without obstruction or gangrene (principal) | CPT/HCPCS: 99213 ==

== ENCOUNTER 2022-04-15 09:14 | Day surgery (SDC) | payer OTHER, SELFPAY ==
[2022-04-12 08:49] VITALS: BMI 34.0
[2022-04-15] VITALS (8 sets, daily range): BP systolic 102–154; BP diastolic 68–86; PULSE 67–93; RESP 16–22; TEMP 36.6; O2SAT 93–100
[2022-04-15] MEDS: heparin 5,000 unit/mL INJ 1 mL 3000 UNIT SUBCUT (10:02)
--- NOTE | 2022-04-15 10:02 | W.PM.OPSUD ---
Surgery/Procedure H&P Update DATE OF PROCEDURE: April 15, 2022 DATE H&P PERFORMED: 04/08/22 H&P UPDATE INFORMATION: I have reviewed H&P completed within last 30 days, I have examined patient prior to procedure and No changes to prior documentation PREOP DIAGNOSIS: Incisional periumbilical hernia PRIMARY INDICATION FOR PROCEDURE: The same PLANNED PROCEDURE: Operation Date: 04/15/22 11:10 Proposed Procedures p open umbilical hernia repair with poss mesh 77433,K42.9(Not Applicable) - Porter Avalos MD
[2022-04-15] MEDS: sodium chloride 0.9% 1,000 ML 30 ML IV (10:05)
[2022-04-15] MEDS: acetaminophen 1,000 MG/100 ML PIGGYBACK 400 MG IV (10:05)
--- NOTE | 2022-04-15 10:18 | P.ANESASSM_ITS ---
Pre-Anesthetic Assessment Height/Weight: Height 1.55 m Weight 81.647 kg Temp Pulse Resp BP Pulse Ox 97.9 F 75 18 154/86 96 04/15/22 09:51 04/15/22 09:51 04/15/22 09:51 04/15/22 09:51 04/15/22 09:51 Preop Diagnosis: Incisional periumbilical hernia Operation Date: 04/15/22 11:10 Proposed Procedures p open umbilical hernia repair with poss mesh 42582,K42.9(Not Applicable) - Porter Avalos MD Familial anesthetic complications: none Was Beta Mary taken within 24 hours: N/A Was Clonidine taken within 24 hours: N/A Last intake: Intake Last Liquid Date 04/14/22 Last Liquid Time 22:45 Last Solid Date 04/14/22 Last Solid Time 17:00 Social No alcohol and No tobacco Exam alert, oriented x 3, clear to auscultation bilaterally and regular rate & rhythm Airway Mallampati: Class III Dentition: full Pulmonary Sleep Apnea CV/HEM None reported None reported Hepatic None reported GI Gastroesophageal Reflux Disease Metabolic Hyperlipidemia [facility] [place]/[facility] None reported Neuropsych None reported Anesthetic Plan ASA status: 2 Anesthesia: General Risk of > 500 ml blood loss (7ml/kg in children): No Medications/Allergies Home Medications Medication Instructions Recorded Confirmed Last Taken Type Saccharomyces boulardii 250 mg 250 mg PO BID 11/09/19 04/15/22 04/14/22 23:30 History capsule (Digest Probiotic (S.boulardii)) calcium carbonate 400 mg calcium 400 mg PO QDAY 11/09/19 04/15/22 04/14/22 09:00 History (1,000 mg) chewable tablet (Antacid Ultra Strength) cetirizine 10 mg capsule (All Day 10 mg PO DAILY 11/09/19 04/15/22 04/14/22 22:30 History Allergy (cetirizine)) cholecalciferol (vitamin D3) 25 1,000 unit PO DAILY 11/09/19 04/15/22 04/14/22 09:30 History mcg (1,000 unit) capsule cinnamon bark 500 mg capsule 500 mg PO BID 11/09/19 04/15/22 04/14/22 22:30 History (Cinnamon) melatonin 10 mg capsule 10 mg PO BEDTIME cap 11/09/19 04/15/22 04/14/22 22:30 History multivitamin (Daily Multi-Vitamin) 1 tab PO DAILY 11/09/19 04/15/22 04/14/22 22:30 History omeprazole 20 mg capsule,delayed 20 mg PO DAILY 11/09/19 04/15/22 04/14/22 07:00 History release potassium chloride 20 mEq 10 meq PO DAILY tab 11/09/19 04/15/22 04/14/22 09:30 History tablet,extended release(part/cryst) sertraline 100 mg tablet 100 mg PO DAILY 11/09/19 04/15/22 04/14/22 22:30 History Fish Oil 1 tab PO DAILY 03/10/21 04/15/22 04/11/22 History cyclobenzaprine 7.5 mg tablet 7.5 mg PO TID PRN 04/08/22 04/15/22 Unknown History lidocaine 1.8 % topical patch 1 patch TOPICAL DAILY PRN 04/08/22 04/12/22 Unknown History rosuvastatin 40 mg tablet 40 mg PO DAILY 04/08/22 04/15/22 04/14/22 22:30 Histor y inulin 2 gram chewable tablet 6 g PO BID 04/12/22 04/15/22 04/14/22 22:30 History (Fiber Gummies) Allergies Allergy/AdvReac Type Severity Reaction Status Date / Time No Known Allergies Allergy Verified 04/15/22 09:45 Current Medications Generic Name Dose Route Start Last Admin Trade Name Freq PRN Reason Stop Dose Admin Sodium Chloride 1,000 mls @ 30 mls/hr 04/15/22 09:45 04/15/22 10:05 Sodium Chloride 0.9% IV 04/16/22 09:44 30 mls/hr .Q24H DIANELYS Administration PFSH Anesthesia Medical History Anxiety and depression Chronic tonsillitis Diverticulosis Elevated LFTs Hyperlipidemia Right upper quadrant abdominal pain Total body pain Surgical History Bone cyst of femur Right --excised History of carpal tunnel release Bilateral History of colonoscopy with polypectomy 2005 History of dental surgery Family History Other Cancer Dementia Hiatal hernia Hypertension Social History Smoking and tobacco status: never smoked Alcohol intake: former Data Anesthesia Cardiac Studies: No Data to Display
[2022-04-15] MEDS: scopolamine 1.5 Patch 1 PATCH TRANSDERMA (10:26)
[2022-04-15] MEDS: lidocaine 2% INJ 20 mL INJECTION (10:55)
--- NOTE | 2022-04-15 11:21 | P.OP_ITS ---
Operative Report Date of procedure: April 15, 2022 Pre-op diagnosis: Preop Diagnosis Incisional periumbilical hernia Post-op diagnosis: The same Procedure done: Open incisional hernia repair without mesh placement Specimens removed/disposition: Hernia sac and contents Surgeon: Porter Avalos MD Electrostatic Paint Operator: Surgical jose Lee nurse Eboni Anesthesia: General (dredge hand Nicole) Estimated blood loss (mL): 5 Procedure: Patient was identified in holding area and the site of the hernia was marked by me ,Patient was brought then to the operating room, general endotracheal anesthesia was administered by the anesthesia provider.prophylactic IV antibiotics were given per protocol Timeout was done verifying the patient's name/date of /planned procedure and destination after the procedure, all were in agreement. SCDs confirmed to be functioning, preoperative antibiotics administered per protocol, and beta karen protocol was confirmed. Prep and drape of the abdomen was done under the usual sterile technique. I started by supraumbilical skin incision,and dissection was carried till the hernia sac was identified and opened,following that trimming of the edges and excising the sac,were sac and contents were sent for pathology after securing the omentum with transfixing 2-0 silk suture and the excess tissues were removed.At that point the fascial defect was less then an inch in diameter, after freeing all the adhesions and freeing the overlying fat on top of the fascia,to facilitate primary closure, under direct visualization I was able to use #1 PDS to close the defect primarily, as an interrupted horizontal mattress sutures,copious and through irrigation of the wound was then achieved and hemostasis. I elected to approximate the underlying surface of the umbilicus with 3-0 Vicryl prior to closure as it was little bit attenuated, following that a 2/0 Vicryl running,continiuos deep subdermal stitch was placed, followed by 4-0 Monocryl was used for subcuticular closure of the skin incision. Lidocaine 2% was used for local infiltration.Surical glue was then applied.Followed by appropraie size Abdominal Binder. Counts of sponges,needles and instruments were completed at the end of the procedure and specimen was verified. Patient tolerated the procedure well and was taken to the recovery area in stable condition after Extubation I was present for the whole entire procedure
[2022-04-15] MEDS: ondansetron 2 mg/ML SDV 2 mL 4 MG IVP (12:12)
[2022-04-15] MEDS: HYDROcodone-acetaminophen 5-325 mg Tablet 1 TAB PO (13:15)
--- NOTE | 2022-04-15 16:03 | ANE.PACU2 ---
Inpatient post-anesthesia follow up: Airway intact: Yes Vital signs: Temperature 97.9 F Pulse Rate 67 Respiratory Rate 17 Blood Pressure 140/71 Pulse Oximetry 95 Oxygen Delivery Me thod Nasal Cannula Oxygen Flow Rate 2 Fraction of Inspir ed Oxygen Hydration adequate: Yes Nausea and vomiting: No Pain level: 2 Mental status: Baseline
== END 2022-04-15 13:27 | disposition home or self-care (01) ==
PROVIDERS: PCP Nurse Practitioner; Visit Provider Surgery
PROC: (CPT 49560; principal; 2022-04-15 11:10)
DX: K43.2 Incisional hernia without obstruction or gangrene (principal); K21.9 Gastro-esophageal reflux disease without esophagitis; F41.9 Anxiety disorder, unspecified; F32.9 Major depressive disorder, single episode, unspecified; E78.5 Hyperlipidemia, unspecified
CPT/HCPCS: 49560; 88302; J1100; J1200; J1644; J2405; J2704; J2710; J3010; J3490; J7030

== ENCOUNTER → 2022-04-24 13:43 | Outpatient (BNVA) | payer OTHER, SELFPAY | PROVIDERS: PCP Nurse Practitioner; Visit Provider Surgery | DX: Z09 Encounter for follow-up examination after completed treatment for conditions other than malignant neoplasm (principal) | CPT/HCPCS: 99024 ==

== ENCOUNTER → 2022-05-07 12:24 | Outpatient (BNVA) | payer OTHER, SELFPAY | PROVIDERS: PCP Nurse Practitioner; Visit Provider Internal Medicine | DX: M79.643 Pain in unspecified hand (principal); Z11.59 Encounter for screening for other viral diseases; Z11.1 Encounter for screening for respiratory tuberculosis; J03.91 Acute recurrent tonsillitis, unspecified | CPT/HCPCS: 72202; 73120; 80053; 82550; 82728; 83516; 83735; 84100; 84550; 85025; 86140; 86160; 86162; 86200; 86235; 86255; 86376; 86431; 86480; 86617; 86704; 86803; 87340; 99203; 99204 ==

== ENCOUNTER 2022-05-17 10:39 | Outpatient (CLI) | payer OTHER, SELFPAY ==
--- NOTE | 2022-05-17 10:58 | MM_ITS ---
WS: [email or web address] Exam: [place] [id number] Date/Time of Exam: 05/17/2022 11:18 AM Reason For Exam: SCREENING VIEWS: MLO and CC views both breasts. 3D digital tomosynthesis is also included in this exam. Comparison made with prior exam of 07/18/2015. 08/08/2016, 09/10/2017, 07/30/2018, 12/16/2019, 1.. Findings: There was no sign of mass, architectural distortion or suspicious calcification in either breast. Sta ble appearing nodular densities in both breasts. Fatty MM/[place] [id number] Impression: BI-RADS: 2-Benign FOLLOW-UP: 1 Year Follow-up This mammogram was also analyzed by the Computer Aided Detection System [employer].
== END 2022-05-17 10:40 | disposition home or self-care (01) ==
LOC: RAD 10:39
PROVIDERS: PCP Nurse Practitioner; Visit Provider Nurse Practitioner
DX: Z12.31 Encounter for screening mammogram for malignant neoplasm of breast (principal)
CPT/HCPCS: 77063; 77067

== ENCOUNTER → 2022-06-05 12:37 | Outpatient (BNVA) | payer OTHER, SELFPAY | PROVIDERS: PCP Nurse Practitioner; Visit Provider Surgery | DX: Z09 Encounter for follow-up examination after completed treatment for conditions other than malignant neoplasm (principal) | CPT/HCPCS: 99024 ==

== ENCOUNTER → 2022-06-11 13:16 | Outpatient (BNVA) | payer OTHER, SELFPAY | PROVIDERS: PCP Nurse Practitioner; Visit Provider Internal Medicine | DX: M79.643 Pain in unspecified hand (principal); S32.9XXA Fracture of unspecified parts of lumbosacral spine and pelvis, initial encounter for closed fracture; R76.8 Other specified abnormal immunological findings in serum; Y93.9 Activity, unspecified | CPT/HCPCS: 99204; 99214 ==

== ENCOUNTER → 2022-07-09 08:55 | Outpatient (BNVA) | payer OTHER, SELFPAY | PROVIDERS: PCP Nurse Practitioner; Referring Provider Nurse Practitioner; Visit Provider Physician Assistant | DX: M89.8X5 Other specified disorders of bone, thigh (principal); M51.37 Other intervertebral disc degeneration, lumbosacral region; M47.816 Spondylosis without myelopathy or radiculopathy, lumbar region | CPT/HCPCS: 72100; 72170; 99203; 99204 ==

== ENCOUNTER 2022-08-02 07:44 | Outpatient (CLI) | payer OTHER, SELFPAY ==
--- NOTE | 2022-08-02 08:00 | MR_ITS ---
WS: [email or web address] MRI LUMBAR SPINE NONCONTRAST TECHNIQUE: Sagittal T1, T2 and STIR imaging. Axial T1 and T2 imaging. CLINICAL INFORMATION: pain COMPARISON: MRI 2016 FINDINGS: Mild lumbar curve. No acute compression. No high-grade central canal stenosis. Disc space narrowing L 1-L2 and L4-L5 with endplate degenerative changes progressed compared to 2016. Mild central canal jimmie nosis L3-L4 and L4-L5 has also progressed.. L1-L2: Mild annular bulging with slight effacement of the ventral thecal sac. Mild facet arthropathy. Slight narrowing of the LEFT subarticular recess. L2-L3: Mild annular bulging. Moderate facet arthropathy. Slight narrowing of the LEFT subarticular re cess. Spinal canal and foramen are patent. L3-L4: Mild annular bulging with mild central canal stenosis. Moderate facet arthropathy ligamentum f lavum hypertrophy. Impingement on the subarticular recess bilaterally. Foramen are patent. L4-L5: Mild disc bulging with mild central canal stenosis. Impingement traversing L5 nerve roots bila terally. Moderate facet arthropathy with ligamentum flavum hypertrophy. Mild LEFT and no significant RIGHT foraminal narrowing. L5-S1: L5 is partially sacralized. Spinal canal and foramen are patent. Moderate facet arthropathy. Normal caliber abdominal aorta. No hydronephrosis in either kidney. Fibroid uterus partially evaluate d. MR/MR lumbar spine wo con* [id number] IMPRESSION: 1. Disc space narrowing L1-L2 and L4-L5 with endplate degenerative changes pro gressed compared to 2016. Mild central canal stenosis L3-L4 and L4-L5 has also progressed. 2. Mild central canal stenosis L3-L4 and L4-L5 due to disc bulging with facet arthropathy ligamentum flavum hypertrophy. This is worse L4-L5 with impingement traversing L5 nerve roots bilaterally. 3. Mild foraminal narrowing worse at LEFT L4-L5. 4. Moderate facet arthropathy L3-L5. 5. Fibroid uterus.
== END 2022-08-02 07:45 | disposition home or self-care (01) ==
PROVIDERS: PCP Nurse Practitioner; Visit Provider Physician Assistant
DX: G89.29 Other chronic pain; M51.36 Other intervertebral disc degeneration, lumbar region; M47.816 Spondylosis without myelopathy or radiculopathy, lumbar region; D25.9 Leiomyoma of uterus, unspecified
CPT/HCPCS: 72148

== ENCOUNTER 2022-08-05 10:43 | Outpatient (CLI) | payer OTHER, SELFPAY ==
--- NOTE | 2022-08-05 11:00 | MR_ITS ---
WS: [email or web address] MRI PELVIS without CONTRAST. COMPARISON: Pelvis radiograph 07/09/2022 Multiplanar, multisequence imaging is performed without contrast. No acute fracture or marrow edema within the sacrum or the iliac crests. Femoral heads are normally p ositioned in the acetabulum. Mild joint space narrowing. There is predominantly low signal mass begin emili in the RIGHT femoral neck extending into the metaphysis of the RIGHT femur. This bone lesion michelle sures 5.2 cm x 2.4 cm. Low signal on all sequences with a few scattered areas of intermediate signal. There is no marrow edema. Benign bony lesion such as enchondroma. No significant trochanteric bursitis. There is a very cyst within the vastus lateralis muscle measuri ng 8 x 7 mm. Could be result of partial tear. Very minimal narrowing of the joint spaces. No signific ant osteoarthritic changes or subchondral cysts. There is also very small amount of fluid adjacent to the ischial tuberosity at the site of the hamstring tendon insertion. MR/MR pelvis wo con* [id number] IMPRESSION: 1. Focal partial tear involving the insertion site of the hamstring tendons to the ischial tuberosity. 2. No significant osteoarthritic changes. 3. Benign-appearing bony lesion proximal RIGHT femur. 4. Very small cyst measuring 8 x 7 mm in the vastus lateralis muscle.
== END 2022-08-05 10:44 | disposition home or self-care (01) ==
PROVIDERS: PCP Nurse Practitioner; Visit Provider Internal Medicine
DX: M79.643 Pain in unspecified hand (principal); M25.551 Pain in right hip; S76.011A Strain of muscle, fascia and tendon of right hip, initial encounter; X58.XXXA Exposure to other specified factors, initial encounter
CPT/HCPCS: 72195

== ENCOUNTER 2022-08-05 10:43 | Outpatient (CLI) | payer OTHER, SELFPAY ==
--- NOTE | 2022-08-05 11:45 | MR_ITS ---
WS: [email or web address] MRI RIGHT HIP with and without CONTRAST. COMPARISON: Radiograph 07/09/2022 Multiplanar, multisequence imaging is performed with and without contrast. No marrow edema or fracture. Mild narrowing of the hip joints. No subtrochanteric bursitis. Nonenhanc ing signal but predominantly low signal lesion in the RIGHT hip extends over length of 6.1 cm and tra nsversely by 1.8 cm. The overlying cortex is normal. No marrow edema and no muscle edema. Nonaggressi ve bone lesion. There is increased T2 signal at the RIGHT ischial tuberosity consistent with a partia l tear at the insertion site of the hamstring tendons. There is a small cyst measuring 8 x 10 mm in t he vastus lateralis muscle. Multiple low signal masses within the uterus consistent with fibroids. Largest measures 2.2 x 2.1 cm. Urinary bladder is negative. MR/MR hip RT wo/w con [id number] IMPRESSION: 1. Nonaggressive, nonenhancing bone lesion proximal RIGHT femur. Benign-appear ing and most typical for enchondroma. 2. Partial tear insertion site hamstring tendons at the ischial tuberosity. 3. No significant fracture or marrow edema. 4. Fibroid uterus.
[2022-08-05] MEDS: gadobenate dimeglumine 20 mL vial IV (14:04)
== END 2022-08-05 10:44 | disposition home or self-care (01) ==
PROVIDERS: PCP Nurse Practitioner; Visit Provider Physician Assistant
DX: M25.551 Pain in right hip (principal); D25.9 Leiomyoma of uterus, unspecified; S76.011A Strain of muscle, fascia and tendon of right hip, initial encounter; X58.XXXA Exposure to other specified factors, initial encounter
CPT/HCPCS: 73723

== ENCOUNTER → 2022-08-13 10:18 | Outpatient (BNVA) | payer OTHER, SELFPAY | PROVIDERS: PCP Nurse Practitioner; Visit Provider Physician Assistant | DX: M89.8X5 Other specified disorders of bone, thigh (principal); M51.37 Other intervertebral disc degeneration, lumbosacral region; M70.61 Trochanteric bursitis, right hip | CPT/HCPCS: 99213; 99214 ==

== ENCOUNTER → 2022-08-20 13:39 | Outpatient (BNVA) | payer OTHER, SELFPAY | PROVIDERS: PCP Nurse Practitioner; Visit Provider Internal Medicine | DX: M79.643 Pain in unspecified hand (principal); R76.8 Other specified abnormal immunological findings in serum; M48.00 Spinal stenosis, site unspecified | CPT/HCPCS: 99213; 99214 ==

== ENCOUNTER 2022-10-22 11:28 | Outpatient (CLI) | payer OTHER, SELFPAY ==
--- NOTE | 2022-10-22 11:38 | US_ITS ---
WS: [email or web address] Pelvic ultrasound, 10/22/2022 Clinical Data: LOWER ABDOMINAL PAIN Comparison: None. Findings: The uterus measures 6.7 cm x 5.5 cm x 3.7 cm. There is a large fibroid measuring 2.23 x 2.57 x 2.59 c m. There are other smaller fibroids throughout the uterus. The endometrium is 1.0 cm. The ovaries were not imaged.There is no fluid in the cul-de-sac. US/US pelvic with transvaginal Impression: Multiple uterine leiomyomas.
== END 2022-10-22 11:29 | disposition home or self-care (01) ==
LOC: RAD 11:32
PROVIDERS: PCP Nurse Practitioner; Visit Provider Nurse Practitioner
DX: R10.30 Lower abdominal pain, unspecified (principal); D25.9 Leiomyoma of uterus, unspecified
CPT/HCPCS: 76830; 76856; 99214

== ENCOUNTER → 2023-01-27 10:15 | Outpatient (BNVA) | payer OTHER, SELFPAY | PROVIDERS: PCP Nurse Practitioner; Visit Provider Internal Medicine | DX: M25.50 Pain in unspecified joint (principal); M79.643 Pain in unspecified hand; R76.8 Other specified abnormal immunological findings in serum; M48.00 Spinal stenosis, site unspecified | CPT/HCPCS: 36415; 73120; 80053; 85025; 85651; 86140; 99214 ==

== ENCOUNTER 2023-03-06 11:51 | Outpatient (CLI) | payer OTHER, SELFPAY ==
--- NOTE | 2023-03-06 12:38 | XR_ITS ---
WS: [email or web address] Right hand, 3 views, 03/06/2023 Clinical Data: ARTHRITIS Comparison: Right hand, 01/27/2023 Findings: No fractures or dislocations are seen. The soft tissues are unremarkable. There is osteoa rthritic change of the right thumb MCP and IP joints. There is osteoarthritic change of the third thr ough fifth finger PIP joints and second through fifth finger DIP joints. The soft tissues are normal. 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
--- NOTE | 2023-03-06 12:38 | XR_ITS ---
WS: [email or web address] Left hand, 3 views, 03/06/2023 Clinical Data: ARTHRITIS Comparison: Left hand, 01/27/2023 Findings: No fractures or dislocations are seen. The soft tissues are unremarkable. There is osteoarthritic greg nge of the left thumb MCP joint and IP joint. There is osteoarthritic change of the left hand third t hrough fifth fingers PIP joints and DIP joints of the second through fifth fingers. XR/XR hand LT 2V [id number] Impression: No change in osteoarthritis of multiple joints of the left hand.
--- NOTE | 2023-03-06 12:38 | XR_ITS ---
WS: [email or web address] Lumbar spine, 3 views, 03/06/2023 Clinical Data: ARTHRITIS Comparison: Lumbar spine, 07/09/2022 Findings: No compression fractures or subluxation is seen. There is multilevel degenerative disc narrowing. The re is a slight dextroscoliosis. There is osteoarthritic spurring at all levels. The transverse proces ses and SI joints are normal. There are clips from a cholecystectomy in the right upper quadrant. XR/XR lumbar spine 2-3V* [id number] Impression: 1. Multilevel degenerative disc narrowing and osteoarthritis. 2. Dextroscoliosis.
== END 2023-03-06 11:52 | disposition home or self-care (01) ==
PROVIDERS: PCP Nurse Practitioner; Visit Provider Chiropractor
DX: M47.816 Spondylosis without myelopathy or radiculopathy, lumbar region (principal); M51.36 Other intervertebral disc degeneration, lumbar region; M48.061 Spinal stenosis, lumbar region without neurogenic claudication; M41.86 Other forms of scoliosis, lumbar region; M19.042 Primary osteoarthritis, left hand; M19.041 Primary osteoarthritis, right hand
CPT/HCPCS: 72100; 73120

== ENCOUNTER → 2023-04-30 11:07 | Outpatient (BNVA) | payer OTHER, SELFPAY | PROVIDERS: Visit Provider Internal Medicine | DX: M25.50 Pain in unspecified joint (principal); M79.643 Pain in unspecified hand; R76.8 Other specified abnormal immunological findings in serum; M48.00 Spinal stenosis, site unspecified | CPT/HCPCS: 99214 ==

== ENCOUNTER 2023-04-30 13:21 | Outpatient (RCR) | payer OTHER, SELFPAY | END 2023-05-19 23:59 | disposition home or self-care (01) | LOC: SPT 13:21 | PROVIDERS: PCP Nurse Practitioner; Visit Provider Obstetrics & Gynecology | DX: R19.8 Other specified symptoms and signs involving the digestive system and abdomen (principal); R10.9 Unspecified abdominal pain | CPT/HCPCS: 97110; 97161; 97530 ==

== ENCOUNTER → 2023-05-12 11:22 | Outpatient (BNVA) | payer OTHER, SELFPAY | PROVIDERS: PCP Nurse Practitioner; Referring Provider Nurse Practitioner; Visit Provider Nurse Practitioner Family | DX: L56.8 Other specified acute skin changes due to ultraviolet radiation (principal); L57.8 Other skin changes due to chronic exposure to nonionizing radiation; Z80.8 Family history of malignant neoplasm of other organs or systems; L81.4 Other melanin hyperpigmentation; D22.5 Melanocytic nevi of trunk; L85.3 Xerosis cutis | CPT/HCPCS: 17000; 99213 ==

== ENCOUNTER 2023-05-20 06:00 | Outpatient (RCR) | payer OTHER, SELFPAY | END 2023-06-11 23:59 | disposition home or self-care (01) | LOC: SPT 06:00 | PROVIDERS: PCP Nurse Practitioner; Visit Provider Obstetrics & Gynecology | DX: R19.8 Other specified symptoms and signs involving the digestive system and abdomen (principal) | CPT/HCPCS: 97110; 97530 ==

== ENCOUNTER 2023-06-05 11:42 | Outpatient (CLI) | payer OTHER, SELFPAY ==
--- NOTE | 2023-06-05 11:51 | MM_ITS ---
WS: [email or web address] Bilateral screening 3D tomosynthesis digital mammogram, 06/05/2023 Clinical Data: SCREENING Comparison: 05/17/2022, 04/17/2021, 12/16/2019, 07/30/2018, 09/10/2017, 08/08/2016, 07/18/2015, 07/11/2014 , 06/17/2013, 07/08/2012, 07/12/2011. Findings: The breast parenchymal pattern shows fat replacement. No spiculated masses or clustered calcification s are seen. There are no secondary signs of carcinoma. Impression: 1. Negative bilateral mammogram unchanged. 2. Recommend annual screening mammograms. MM/[place] [id number] BIRADS: 1-Negative FOLLOW UP: 1 Year Follow-up The CAD bad cloth checker was used.
== END 2023-06-05 11:43 | disposition home or self-care (01) ==
LOC: RAD 11:45 → MOBLMAM 11:50
PROVIDERS: PCP Nurse Practitioner; Visit Provider Nurse Practitioner
DX: Z12.31 Encounter for screening mammogram for malignant neoplasm of breast (principal)
CPT/HCPCS: 77063; 77067

== ENCOUNTER → 2023-07-21 08:59 | Outpatient (BNVA) | payer OTHER, SELFPAY | PROVIDERS: PCP Nurse Practitioner; Visit Provider Anesthesiology Pain Medicine | DX: M51.37 Other intervertebral disc degeneration, lumbosacral region; M47.816 Spondylosis without myelopathy or radiculopathy, lumbar region | CPT/HCPCS: 99205 ==

== ENCOUNTER → 2023-08-11 13:47 | Outpatient (BNVA) | payer OTHER, SELFPAY | PROVIDERS: PCP Nurse Practitioner; Visit Provider Anesthesiology Pain Medicine | DX: M79.604 Pain in right leg; M47.816 Spondylosis without myelopathy or radiculopathy, lumbar region | CPT/HCPCS: 64493; 64494; 64495; J1030; J3490 ==

== ENCOUNTER → 2023-08-25 08:39 | Outpatient (BNVA) | payer OTHER, SELFPAY | PROVIDERS: PCP Nurse Practitioner; Visit Provider Anesthesiology Pain Medicine | DX: M79.604 Pain in right leg; M51.37 Other intervertebral disc degeneration, lumbosacral region; M47.816 Spondylosis without myelopathy or radiculopathy, lumbar region; M79.605 Pain in left leg | CPT/HCPCS: 17000; 99214 ==

== ENCOUNTER → 2023-09-17 12:42 | Outpatient (BNVA) | payer OTHER, SELFPAY | PROVIDERS: PCP Nurse Practitioner; Visit Provider Anesthesiology Pain Medicine | DX: M47.816 Spondylosis without myelopathy or radiculopathy, lumbar region (principal); M79.604 Pain in right leg | CPT/HCPCS: 64635; 64636; J1030 ==

== ENCOUNTER → 2023-10-01 12:58 | Outpatient (BNVA) | payer OTHER, SELFPAY | PROVIDERS: PCP Nurse Practitioner; Visit Provider Anesthesiology Pain Medicine | DX: M47.816 Spondylosis without myelopathy or radiculopathy, lumbar region (principal); M79.604 Pain in right leg | CPT/HCPCS: 64635; 64636; J1030 ==

== ENCOUNTER → 2023-10-21 09:37 | Outpatient (BNVA) | payer OTHER, SELFPAY | PROVIDERS: PCP Nurse Practitioner; Visit Provider Anesthesiology Pain Medicine | DX: M79.604 Pain in right leg; M51.37 Other intervertebral disc degeneration, lumbosacral region; M47.816 Spondylosis without myelopathy or radiculopathy, lumbar region | CPT/HCPCS: 99214 ==

== ENCOUNTER → 2023-10-29 10:07 | Outpatient (BNVA) | payer OTHER, SELFPAY | PROVIDERS: PCP Nurse Practitioner; Visit Provider Internal Medicine | DX: M25.50 Pain in unspecified joint (principal); M48.00 Spinal stenosis, site unspecified; R76.8 Other specified abnormal immunological findings in serum; M79.643 Pain in unspecified hand; Z79.899 Other long term (current) drug therapy | CPT/HCPCS: 36415; 80053; 81001; 84443; 85025; 85651; 86140; 99214 ==

== ENCOUNTER → 2023-11-25 10:13 | Outpatient (BNVA) | payer OTHER, SELFPAY | PROVIDERS: PCP Nurse Practitioner; Visit Provider Nurse Practitioner Family | DX: L56.8 Other specified acute skin changes due to ultraviolet radiation (principal); Z80.8 Family history of malignant neoplasm of other organs or systems; L21.8 Other seborrheic dermatitis; L85.3 Xerosis cutis; L57.8 Other skin changes due to chronic exposure to nonionizing radiation | CPT/HCPCS: 17110; 99214 ==

== ENCOUNTER → 2024-01-20 09:39 | Outpatient (BNVA) | payer OTHER, SELFPAY | PROVIDERS: PCP Nurse Practitioner; Visit Provider Anesthesiology Pain Medicine | DX: M79.604 Pain in right leg; M51.37 Other intervertebral disc degeneration, lumbosacral region; M47.816 Spondylosis without myelopathy or radiculopathy, lumbar region | CPT/HCPCS: 99214 ==

== ENCOUNTER → 2024-03-23 08:43 | Outpatient (BNVA) | payer OTHER, SELFPAY | PROVIDERS: PCP Nurse Practitioner; Visit Provider Anesthesiology Pain Medicine | DX: M79.604 Pain in right leg; M51.37 Other intervertebral disc degeneration, lumbosacral region; M47.816 Spondylosis without myelopathy or radiculopathy, lumbar region; M48.061 Spinal stenosis, lumbar region without neurogenic claudication | CPT/HCPCS: 99214 ==

== ENCOUNTER 2024-04-12 13:23 | Outpatient (CLI) | payer OTHER, SELFPAY ==
--- NOTE | 2024-04-12 13:31 | XR_ITS ---
WS: [email or web address] SCREENING DEXA SCAN [employer] CLINICAL INFORMATION: SCREENING COMPARISON: None. FINDINGS: The L1-L4 bone mineral density measures 1.527 g/cm2. This corresponds to a T score score of 2.9 and Z score of 4.0. Left femoral neck bone mineral density measures 1.052 g/cm2. This corresponds to a T score of 0.4 and Z score of 1.4. Right femoral neck bone mineral density measures 1.169 g/cm2. This corresponds to a T score 1.3of and Z score of 2.3. Mean femoral neck bone mineral density measures 1.111 g/cm2. This corresponds to a T score of 0.8 and Z score of 1.8. XR/XR DEXA axial skeleton* [id number] IMPRESSION: Normal bone mineralization. Patient's FRAX calculated 10 year probability for major osteoporotic fracture i s 9.7% and osteoporotic hip fracture is 0.8%.
== END 2024-04-12 13:24 | disposition home or self-care (01) ==
LOC: RAD 13:24
PROVIDERS: PCP Nurse Practitioner; Visit Provider Nurse Practitioner
DX: Z01.89 Encounter for other specified special examinations (principal)
CPT/HCPCS: 77080

== ENCOUNTER → 2024-06-28 10:11 | Outpatient (BNVA) | payer OTHER, SELFPAY | PROVIDERS: PCP Nurse Practitioner; Visit Provider Nurse Practitioner Family | DX: L56.8 Other specified acute skin changes due to ultraviolet radiation (principal); L21.8 Other seborrheic dermatitis; L85.3 Xerosis cutis; L81.4 Other melanin hyperpigmentation; D22.5 Melanocytic nevi of trunk | CPT/HCPCS: 17110; 99214 ==

== ENCOUNTER 2024-07-06 13:36 | Outpatient (CLI) | payer OTHER, SELFPAY ==
--- NOTE | 2024-07-06 13:40 | MM_ITS ---
WS: [email or web address] BILATERAL 3D TOMOSYNTHESIS DIGITAL SCREENING MAMMOGRAPHY WITH CAD CLINICAL INFORMATION: SCREENING HISTORY: Screening mammogram. No current complaints. COMPARISON: 2022 TECHNIQUE: Bilateral CC and MLO views. FINDINGS: Scattered fibroglandular densities bilaterally. No suspicious focal mass, asymmetry, calcifications, or architectural distortion. No evidence of malignancy. Benign calcification LEFT breast. MM/MM scr tomosynthesis [id number] IMPRESSION: DENSITY: There are scattered areas of fibroglandular density. BI-RADS: 2 - Benign. FOLLOW UP: 1 Year Follow-up Recommend return to annual screening mammography.
== END 2024-07-06 13:37 | disposition home or self-care (01) ==
LOC: MOBLMAM 13:42
PROVIDERS: PCP Nurse Practitioner; Visit Provider Nurse Practitioner
DX: Z12.31 Encounter for screening mammogram for malignant neoplasm of breast (principal); R92.323 Mammographic fibroglandular density, bilateral breasts; R92.1 Mammographic calcification found on diagnostic imaging of breast
CPT/HCPCS: 77063; 77067

== ENCOUNTER → 2025-01-18 13:10 | Outpatient (BNVA) | payer OTHER, SELFPAY | PROVIDERS: PCP Nurse Practitioner; Visit Provider Internal Medicine Rheumatology | DX: M06.041 Rheumatoid arthritis without rheumatoid factor, right hand (principal); M06.042 Rheumatoid arthritis without rheumatoid factor, left hand; R76.8 Other specified abnormal immunological findings in serum; Z79.899 Other long term (current) drug therapy; Z71.85 Encounter for immunization safety counseling | CPT/HCPCS: 36415; 80076; 82306; 82565; 85025; 85651; 86140; 99214 ==

== ENCOUNTER → 2025-04-25 10:55 | Outpatient (BNVA) | payer OTHER, SELFPAY | PROVIDERS: PCP Nurse Practitioner; Referring Provider Nurse Practitioner; Visit Provider Anesthesiology Pain Medicine | DX: M54.50 Low back pain, unspecified (principal); M79.604 Pain in right leg; M51.379 Other intervertebral disc degeneration, lumbosacral region without mention of lumbar back pain or lower extremity pain; M47.816 Spondylosis without myelopathy or radiculopathy, lumbar region | CPT/HCPCS: 99214 ==

== ENCOUNTER → 2025-05-11 13:07 | Outpatient (BNVA) | payer OTHER, SELFPAY | PROVIDERS: PCP Nurse Practitioner; Visit Provider Anesthesiology Pain Medicine | DX: M47.816 Spondylosis without myelopathy or radiculopathy, lumbar region (principal); M54.50 Low back pain, unspecified; M79.604 Pain in right leg; M54.9 Dorsalgia, unspecified | CPT/HCPCS: 64635; 64636; J1100; J9999 ==

== ENCOUNTER → 2025-06-14 08:41 | Outpatient (BNVA) | payer OTHER, SELFPAY | PROVIDERS: PCP Nurse Practitioner; Visit Provider Anesthesiology Pain Medicine | DX: M54.50 Low back pain, unspecified (principal); M79.604 Pain in right leg; M51.379 Other intervertebral disc degeneration, lumbosacral region without mention of lumbar back pain or lower extremity pain; M47.816 Spondylosis without myelopathy or radiculopathy, lumbar region | CPT/HCPCS: 99213 ==

== ENCOUNTER → 2025-06-30 10:38 | Outpatient (BNVA) | payer OTHER, SELFPAY | PROVIDERS: PCP Nurse Practitioner; Visit Provider Nurse Practitioner Family | DX: L21.8 Other seborrheic dermatitis (principal); S80.861A Insect bite (nonvenomous), right lower leg, initial encounter; X58.XXXA Exposure to other specified factors, initial encounter; L81.4 Other melanin hyperpigmentation; D22.5 Melanocytic nevi of trunk; Z80.8 Family history of malignant neoplasm of other organs or systems; L56.8 Other specified acute skin changes due to ultraviolet radiation; L57.0 Actinic keratosis | CPT/HCPCS: 17000; 17110; 99214 ==

== ENCOUNTER → 2025-07-26 10:41 | Outpatient (BNVA) | payer OTHER, SELFPAY | PROVIDERS: PCP Nurse Practitioner; Visit Provider Internal Medicine Rheumatology | DX: M06.041 Rheumatoid arthritis without rheumatoid factor, right hand (principal); M06.042 Rheumatoid arthritis without rheumatoid factor, left hand; R76.89 Other specified abnormal immunological findings in serum; Z79.899 Other long term (current) drug therapy; Z71.85 Encounter for immunization safety counseling | CPT/HCPCS: 80076; 82306; 82565; 85025; 85651; 86140; 99214 ==

== ENCOUNTER 2025-08-03 10:03 | Outpatient (CLI) | payer OTHER, SELFPAY ==
--- NOTE | 2025-08-03 10:00 | MM_ITS ---
WS: [email or web address] BILATERAL SCREENING DIGITAL TOMOSYNTHESIS MAMMOGRAM WITH CAD HISTORY: SCREENING COMPARISON: 07/06/2024, 06/05/2023, 05/17/2022 Bilateral CC and MLO views with tomosynthesis and synthetic mammography submitted. Computer aided detection analyzed. Breast composition: There are scattered areas of fibroglandular density. No suspicious masses, microcalcifications or architectural distortion. Stable lymph node upper outer quadrant RIGHT breast at middle depth. Benign calcifications central LEFT breast. MM/MM scr BI tomosynthesis [id number] IMPRESSION: BI-RADS: 2 - Benign. FOLLOW UP: 1 Year Follow-up
== END 2025-08-03 10:04 | disposition home or self-care (01) ==
LOC: MOBLMAM 10:05
PROVIDERS: PCP Nurse Practitioner; Visit Provider Nurse Practitioner
DX: Z12.31 Encounter for screening mammogram for malignant neoplasm of breast (principal); R92.323 Mammographic fibroglandular density, bilateral breasts; N63.11 Unspecified lump in the right breast, upper outer quadrant; R92.1 Mammographic calcification found on diagnostic imaging of breast
CPT/HCPCS: 77063; 77067